=== PATIENT | female | born 1985 | race Caucasian/White ===

== ENCOUNTER 2016-04-26 06:38 | Day surgery (SDC) | payer OTHER ==
[2016-04-26] VITALS (13 sets, daily range): BP systolic 95–132; BP diastolic 55–82; PULSE 74–101; RESP 11–20; O2SAT 93–99
[~2016-04-26] VITALS: Ht 157.5 cm; Wt 97.5 kg
[~2016-04-26 06:38] MED LIST: ALBU8.5H2 INHALATION; Clindamycin 900 mg/50 mL D5W IV ONE; DEXTROSE 5% IV ONE; GENTAMICIN IV ONE; IBUP-1827 PO; LORA10CA PO; Phenazopyridine 97.5 mg Tablet PO ONE
[2016-04-26] MEDS ORDERED: fentaNYL-PF 50 mCg/mL 2 mL Inj ONE (06:39)
[2016-04-26] MEDS ORDERED: Morphine PF 1 mg/mL 10 mL Inj ONE (06:39)
[2016-04-26] MEDS ORDERED: Glycopyrrolate 0.2 mg/mL 5 mL Inj ONE (06:39)
[2016-04-26] MEDS ORDERED: Ondansetron 2 mg/mL 2 mL Inj ONE (06:39)
[2016-04-26] MEDS ORDERED: Rocuronium 10 mg/mL 5 mL Inj ONE (06:39)
[2016-04-26] MEDS ORDERED: Propofol 10,000 mCg/mL 20 mL Inj ONE (06:39)
[2016-04-26] MEDS ORDERED: Neostigmine 1 mg/mL 5 mL Inj ONE (06:39)
[2016-04-26] MEDS ORDERED: Dexamethasone 4 mg/mL Inj ONE (06:39)
[2016-04-26] MEDS: Lactated Ringer's 1,000 ML IV SCH ×5 (07:44→23:37)
--- NOTE | 2016-04-26 08:25 | PCM.HPANE ---
Patient Data Date of Service: Apr 26, 2016 Surgeon Admitting Provider: Attending Provider:Miguel Hu MD Primary Care Physician:Juan Daniel Other Provider:Corazon Erazo Anesthesia Reason for Visit Uterovaginal Prolapse, Cystocele, Rectocele, Stres UTEROVAGINAL PROLAPSE, CYSTOCELE, RECTOCELE, STRES Ht/WT & BMI Height (Feet): 5 Height (Inches): 2 Weight (Kilograms): 96.6 Body Mass Index 0.00 Allergies Coded Allergies: Penicillins (Verified Allergy, Unknown, throat swells, 04/26/16) Past Anesthesia History Anesthesia History: Denies:: Abnormal Airway, Anesthesia Reactions, Difficult Intubation, Fam Anesthesia Reaction Diabetes History Hx Diabetes?: No MRSA MRSA: No Medications Hypertension Medication: No Home Meds Incl Beta Elvi: No Reported Medications Ibuprofen 600 Mg [id number] Mg PO QID PRN For Pain Ref 0 04/24/16 Loratadine (Claritin)10 Mg [id number] Mg PO DAILY Ref 0 04/24/16 Albuterol HFA (Proair HFA)8.5 Gm Hfa.aer.ad2 Puffs INHALATION Q4H PRN For Shortness of Breath #1 INHALER 04/24/16 History History of ENT Problems?: Yes HEENT History: Positive for:: Sinus Problem (allergies) TMJ (grinds, no nightguard) Denies:: Abnormal Airway Cataracts Difficult Intubation Dysphagia Glaucoma Hearing Problem Teeth Condition: Broken Teeth Cardiovascular History: Positive for:: Irregular Heartbeat (slight arrythmia-) Denies:: AICD Abdominal Aortic Aneurism Atrial Fibrillation Heart Murmur Hypertension Pacemaker Peripheral Vascular Rheumatic Fever Hx of Respiratory Problem?: Yes Respiratory History: Positive for:: Asthma (situational, exercise induced) Use of Inhalers / NEBS Denies:: COPD Emphysema Oxygen Administration Pneumonia Tuberculosis Use of C-PAP Machine Hx Neurologic Problems?: Yes Neurological History: Positive for:: Headaches Denies:: Alzheimer's Disease CVA Dementia Multiple Sclerosis Parkinson's Disease Seizures TIA Hx of GI Problems?: Yes Gastrointestinal History: Positive for:: Gastroesphageal Reflux Heartburn (tums occasionally) Denies:: Cirrhosis Diverticulitis Gall Bladder Disease Hepatitis Hiatal Hernia Liver Disease Hx of Problems?: No Genitourinary History: Denies:: Kidney Stones Urinary Tract Infection (occasional not frequent) Female Hx: Denies:: Currently Problems with Breasts? Skin History: Denies:: History Skin Disorders? Pressure Ulcers Hx Musculoskeletal Problems?: No Musculoskeletal History: Denies:: Back Injury Joint Replacement Musculoskeletal Trauma Myasthenia Gravis Osteoarthritis Rheumatoid Arthritis Hx of Psycho/Social Problems?: Yes Psycho Social History: Positive for:: Anxiety Hx Depression Hx Surgeries?: Yes (D+C) Hx Any Other Health Problems?: Yes Other History: Denies:: Cancer Thyroid Disease History Blood Transfusions: Positive for:: Accept Blood Products? Denies:: Blood Transfusions Hx Diabetes: No Hx Alcohol Use: NoHx Substance Use: Yes (marijuana - daily)Have You Smoked inLast 12 mo: No (vapes currently) Stop/Bang S-Snoring: Do You Snore Loudly: No T-Tired: feel tired, fatigued: No O-Obsered: Observed not breath: No P-Blood Pressure: treated: No B- Body Mass Index > 35 kg/m2: No A- Age over 50: No N- Neck Large Circumference: No G- Gender Male: No SONIDO Total Score: 0 Risk Assessment Category Category 1A: Patient has history of documented sleep apnea, and HAS NOT received any narcotic, sedative or anesthesia administration during this stay. Category 1B: Patient has history of documented sleep apnea, and HAS received any narcotic , sedative or anesthesia administration during this stay Category 2: Patient has SUSPECTED Obstructive Sleep Apnea, and HAS received any narcotic , sedative or anesthesia administration during this stay. Category 3: Patient has SUSPECTED Obstructive Sleep Apnea and HAS NOT received narcotic, sedative or anesthesia administration during this stay. Category 4: Outpatient in Procedural Areas with known sleep apnea or who screen positive for High Risk via the STOP/BANG questionnaire. Exam Exam Vital Signs Vital Signs Date Time Temp Pulse Resp B/P Pulse Ox O2 Delivery O2 Flow Rate FiO2 04/26/16 07:03 36.5 95 20 132/82 97 Room Air General Appearance: Alert, Oriented X3 HEENT/AIRWAY: MP 3 Lungs: Clear to Auscultation, Normal Air Movement Heart: Regular Rate/Rhythm Meds/Labs/Diagnostics Admission Meds Current Medications Phenazopyridine HCl 2 tab 2 tab PREOP ONCE PO Last administered on 04/26/16t 07 :55; Start 04/26/16 at 06:00; Stop 04/26/16 at 06:01; Status DC Lactated Ringer's (Lr) 1,000 ml @ 120 mls/hr Q8H20M IV Last administered on t 07:44; Start 04/26/16 at 05:00; Stop 04/26/16 at 13:19 Plan Impression Patient chart reviewed, patient interviewed and anesthestic plan with risks, benefits, and alternatives discussed, and informed consent obtained. NPO Status: 04/25 3024 ASA Physical Status: ASA2 Mod Systemic Disease Anesthetic Plan: GA, SAB (for post op analgesia) Bene/Risks/Altern/Consents: Yes HP Complete Prior to Induction: Yes Manpreet Echols MD Apr 26, 2016 08:25
[2016-04-26] MEDS ORDERED: Lidocaine 1%-Epi 1:100,000 20 mL Inj NERVEBLOCK ONE (09:26)
[2016-04-26] MEDS ORDERED: Sodium Chloride Bacteriostatic 30 mL Inj INJ ONE ×2 (09:26→11:32)
[2016-04-26] MEDS ORDERED: Gentamicin 40 mg/mL 2 mL Inj IRRIGATION ONE ×2 (09:27→11:43)
[2016-04-26] MEDS ORDERED: Lactated Ringer's 1,000 ML IV SCH (10:11)
[2016-04-26] MEDS ORDERED: Lactated Ringer's 500 ML IV PRN (10:11)
[2016-04-26] MEDS ORDERED: MetoCLOpramide 5 mg/mL 2 mL Inj IVPUSH PRN ×2 (10:15→14:10)
[2016-04-26] MEDS ORDERED: EPHEDrine Sulfate 50 mg/mL Inj IM PRN (10:15)
[2016-04-26] MEDS ORDERED: Phenylephrine 10,000 mCg/mL Inj IVPUSH PRN (10:15)
[2016-04-26] MEDS ORDERED: hydrALAZINE 20 mg/mL Inj IVPUSH PRN (10:15)
[2016-04-26] MEDS ORDERED: Atropine 0.4 mg/mL Inj IVPUSH PRN (10:15)
[2016-04-26] MEDS ORDERED: EPHEDrine Sulfate 50 mg/mL Inj IVPUSH PRN (10:15)
[2016-04-26] MEDS ORDERED: Ondansetron 2 mg/mL 2 mL Inj IVPUSH PRN ×2 (10:15→14:10)
[2016-04-26] MEDS ORDERED: fentaNYL-PF 50 mCg/mL 2 mL Inj IVPUSH PRN (10:15)
[2016-04-26] MEDS ORDERED: HYDROmorphone 1 mg/mL Inj IVPUSH PRN (10:15)
[2016-04-26] MEDS ORDERED: Labetalol 5 mg/mL 4 mL Inj IV PRN (10:15)
[2016-04-26] MEDS ORDERED: Lidocaine 1%-Epi 1:100,000 20 mL Inj INJ ONE (11:31)
[2016-04-26] MEDS ORDERED: Nalbuphine 10 mg/mL Inj IV PRN (13:10)
[2016-04-26] MEDS ORDERED: Estrogens Conjugated 30 Gm Vaginal Cream VAGINAL ONE (13:19)
[2016-04-26] MEDS ORDERED: Alum-Mag Hydrox-Simeth 30 mL Suspension PO PRN (14:10)
[2016-04-26] MEDS ORDERED: diphenhydrAMINE 25 mg Capsule PO PRN (14:10)
[2016-04-26] MEDS ORDERED: Acetaminophen IV 1,000 MG in IV Premix 1 EACH IV ONE (14:10)
--- NOTE | 2016-04-26 15:30 | PCM.ANEP2 ---
Post Anesthesia Evaluation ASA/CMS Post Anesthesia Date of Service: Apr 26, 2016 VS in Patient's Normal Range?: Yes Resp Stable; Airway Patent?: Yes CV Function & Hydration Stable: Yes Mental Status Recovered?: Yes Pain control Satisfactory?: Yes N/V Control Satisfactory?: Yes Manpreet Echols MD Apr 26, 2016 15:30
--- NOTE | 2016-04-26 15:30 | PCM.ANEP1 ---
Post Anesthesia Phase 1 PACU Phase 1 Assessment Date of Service: Apr 26, 2016 Vital Signs Vital Signs Date Time Temp Pulse Resp B/P Pulse Ox O2 Delivery O2 Flow Rate FiO2 04/26/16 15:15 74 14 107/73 98 Nasal Cannula 2 04/26/16 15:00 77 11 118/72 99 Nasal Cannula 2 04/26/16 14:45 80 16 121/56 95 Nasal Cannula 2 04/26/16 14:44 16 94 04/26/16 14:30 36.5 77 13 121/59 98 Simple Mask 8 04/26/16 14:25 75 14 116/59 97 Simple Mask 8 04/26/16 14:20 80 15 114/62 98 Simple Mask 8 04/26/16 14:15 80 14 108/56 99 Simple Mask 8 04/26/16 14:10 85 16 114/58 98 Simple Mask 8 04/26/16 14:07 36.8 85 13 123/63 98 Simple Mask 8 Anesthetic Administered: GA, SAB Level of Alertness: Sleeping, hard to arouse COATES's with Equal Strength: Yes Pain: Yes Nausea or Vomiting: No Airway Device: Oralpharangeal Airway Oxygen Delivery: Simple Mask Lungs: Clear to Auscultation, Normal Air Movement Dermatome Level: Full Sensation Manpreet Echols MD Apr 26, 2016 15:30
--- NOTE | 2016-04-26 15:56 | NUR ---
Post Op Transfer Pt transferred to [facility] room 1025 at 1535 via stretcher. A&Ox3. COATES. Pt able to transfer bed. Tolerated activity well. Denies pain. Denies nausea. Doyle cath patent and draining to gravity. Vaginal packing in place with peripad C/D/I. Bilateral band aids on lower groin with steri strips C/D/I. 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 Care continues.
[2016-04-26] MEDS ORDERED: Albuterol 2.5 mg/3 mL Inhalation Solution NEB PRN (16:00)
[2016-04-26] MEDS ORDERED: Influenza (Adult) Vaccine 0.5 mL Syringe IM ONE (16:15)
[2016-04-26] MEDS: oxyCODONE-Acetamin 5-325 mg Tablet PO PRN ×3 (17:22→23:36)
--- NOTE | 2016-04-26 18:35 | NUR ---
Diet Pt tolerated full liquid dinner tray with no nausea. Advanced pt to general diet and ordered a sandwich per pt request.
--- NOTE | 2016-04-27 00:11 | PCM.SURGOP ---
Surgical Operative Report Date of Service: Apr 26, 2016 Pre Operative Diagnosis 1. POPQ Stage 1-2 Apical Uterine prolapse, 2. POPQ Stage 2 Anterior and Posterior vaginal prolapse 3. urodynamic stress incontinence Post Operative Diagnosis 1. POPQ Stage Uterine prolapse/Cystocele/Rectocele 2. Deficient Pubocervical/pubovesical fascia 3. Enlarged, cystic ovaries 4. urodynamic stress incontinence Procedure: 1. vaginal hysterectomy with bilateral salpingectomy, 2. anterior repair with Xenform graft augmentation 3. posterior repair 4. high uterosacral ligament vaginal vault suspension and enterocele repair 5. TVT-obturator sling and cystoscopy Surgeon and Supervisor [employer] Education: Surgeon: Miguel Hu MD Assistants: Andrey Morales MD Indication for Procedure Her assessment includes: 1. Uterovaginal prolapse, incomplete N81.2 (618.2): 2. Cystocele, midline N81.11 (618.01): 3. Rectocele N81.6 (618.04): 4. Mixed incontinence N39.46 (788.33): urodynamic stress incontinence The patient is a candidate for surgical prolapse management in the form of:. vaginal hysterectomy. with bilateral salpingectomy, anterior repair. and posterior repair with possible biologic graft augmentation. high uterosacral ligament vaginal vault suspension. enterocele repair and TVT-obturator sling. The patient signed the consent form. She agreed with the risks, benefits, and alternatives to surgery. The risks included but not limited to recurrence or persistence of prolapse, recurrence of persistence of incontinence, development of voiding dysfunction, development of urinary urgency, urgency incontinence, frequency, and need for intermittent self-catheterization or prolonged indwelling catheterization, injury to other organs including bladder, bowel, nerves or blood vessels. Need for blood transfusion, need for temporary colostomy or urinary stenting. Development of vaginal scarring, dyspareunia, defecatory dysfunction, recurring pain, hematoma formation, urinary tract infection, cellulitis, necrotizing fascitis, and medical risks including myocardial infarction, stroke or VTE. She also understood the FDA warnings associated with the use of vaginal mesh (dysparunia, vaginal erosion, erosion into bowel/bladder/urethra, requiring further surgery to correct these complications). The patient understood the risks and benefits and consented to surgery.. Findings: see dictation Procedure Details SURGICAL TECHNIQUE: The patient was brought to the operating room. She was given a spinal block. She was placed under general anesthesia. She was positioned with legs in [place] stirrups. She was prepped and draped in the normal fashion for vaginal surgery. She was given a dose of IV clindamycin and gentamicin intraoperatively. She received 200 mg pyridium orally 30 min prior to surgery. 1. Vaginal Hysterectomy and bilateral salpingectomy: Lidocaine 0.5% with 1:50,000 of epinephrine was infiltrated pericervically. The cervix descended 1cm proximal to the hymen (POPQ stage 2). A pericervical incision was made with cautery. Anteriorly, the bladder was sharply dissected off the cervix. Posteriorly, the cul de sac was entered with Sharp dissection. The bowels were packed with a mini-laparotomy sponge. The uterosacral ligaments were bilaterally clamped, divided and then tied in a transfixion fashion with 0- vicryl suture. Anteriorly, the Uterovesical peritoneum was entered with sharp dissection and the bladder was retracted upward with a right-angle retractor. The uterine vessels were then coagulated, and ligated using the Ligasure Impact System. The uterine body was delivered posteriorly. The utero-ovarian ligaments were clamped bilaterally, coagulated, ligatated and then tied using 0-Vicryl suture. The tubes appeared normal. Both ovaries were enlarged and noted to have simple cysts. The right ovary measured 4.5 cm and the left 3.5 cm. Manual manipulation of the right ovary resulted in rupture of one of the cysts. Cautery was used to achieve hemostasis along the ovary. She agreed to have a bilateral salpingectomy. The tubes were clamped at their base, coagulated with Ligasure and excised. The base was tied with 0-vicryl suture. The uterus/cervix, and tubes were sent to pathology. It was noted that the pedicles were hemostatic. 2-0 vicryl suture was used to achieve hemostasis along the cuff. 2. High uterosacral ligament vaginal vault suspension, cystoscopy and enterocele repair: Mini laparotomy sponges were packed to retract the bowel upwards. A pair of Allis clamps were placed along the intraperitoneal portions of the vagina at the 5 and 7 o'clock positions. Tension along these Allis clamps allowed for identification of the uterosacral ligaments bilaterally. A pair of 0 Vicryl sutures were passed around the uterosacral ligaments of the level of the ischial spine bilaterally, totalling 4. Cystoscopy was performed. As the pyridium was not concentrating well in the urine, 200 ml of D50 was instilled into the bladder. Tension was applied along the vault sutures and brisk spillage of urine was noted briskly effluxing from both ureteric orifices. The D50 was emptied from the bladder and the bladder was rinsed with normal saline. Next two 3-0 Prolene sutures were placed transversely through the cul-de-sac peritoneum. This was Performed while using a gloved finger in the rectum as to avoid penetrating the underlying rectal mucosa. Tying these sutures obliterated the enterocele. 3. Anterior colporrhaphy with Xenform graft augmentation: Lidocaine 0.5% with 1 /57972 epinephrine was infiltrated along the anterior vaginal wall mucosa. A midline vertical incision was made through the anterior vaginal wall. The vaginal wall was dissected off the underlying pubocervical and pubovesical fascia. The dissection was extended laterally beyond the ischial pubic rami. It was noted that the pubocervical and pubovesical fascial tissues were deficient and thin. The cystocele was plicated in 2 layers, the first layer with 2-0 Vicryl suture in interrupted fashion, the second layer with 2-0 Tycron suture in an interrupted fashion. A trapezoidal piece of Xenform graft was then incorporated atop the plicated area far laterally. The graft was secured to the obturator internus membrane. At the level of the bladder neck, an upside down triangular piece of graft was excised so that there was no over-support created along the level of the bladder neck. Apically , the graft was passed through the proximal uterosacral ligament sutures. A mild amount of excess anterior vaginal mucosa was excised. The vault suspension sutures were then passed through the planned apex of the vagina. Two were placed through the anterior apex and the other two, through the posterior apex. The vagina was then reapproximated using 3-0 Vicryl suture in a running-locked fashion. The high uterosacral ligament vaginal vault suspension sutures were tied and this elevated the apex of the vagina high up into the hollow of the sacrum. 4. Posterior colpoperineorrhaphy: Lidocaine 0.5% with 1:50,000 of epinephrine was infiltrated along the perineum and posterior vaginal wall mucosa. A wedge of perineum was excised with a scalpel and a midline vertical incision was made through the posterior vaginal wall. The vaginal mucosa was dissected off the underlying rectovaginal tissues. It was noted the fascial tissues were sufficient. The rectocele was plicated in two layers using 2- 0 Vicryl suture in an interrupted fashion. A mild amount of excess posterior vaginal mucosa was excised. The perineum was reapproximated using 2-0 Vicryl suture in an interrupted fashion. The skin was reapproximated using 3-0 Vicryl suture in a subcuticular fashion. 5. TVT-Obturator sling and cystoscopy. Lidocaine 0.5% with 1/68744 epinephrine was infiltrated along the anterior vaginal wall mucosa at the level of the mid urethra. Midline vertical incision was made at that level, 2 periurethral tunnels were created with Metzenbaum scissors. Two stab incisions were created at the skin at the groin at a level 2 cm superior to the external urethral meatus and 2 cm lateral to the fold created between the vulva and thigh. Faust catheter had already been inserted. A butterfly guide was inserted into the right periurethral tunnel, a curved helical needle was inserted on top of the guide and rotated out to the ipsilateral skin incision. The same procedure was performed on the contralateral side. Next the Faust catheter was removed. Cystoscopy was performed with D50. There was no inadvertent penetration of the sling through the vagina, urethra or bladder. In addition, the ureteric orifices were noted bilaterally to be functional by the brisk spillage of urine. The bladder appeared normal. The plastic sheaths of the sling were removed. The bladder was filled with additional sterile water (to a total bladder volume of 300 ml). Using the Crede maneuver, sling tension was appropriately adjusted. Also a large right angle clamp was allowed to easily pass behind the sling so that the sling was placed in a tension-free manner. The sling ends were cut at the level of the skin. The skin was reapproximated using Mastisol, Steri-Strips and band-aids. The vagina was reapproximated using 3-0 Vicryl suture in a running fashion The vagina was packed with Premarin-lubricated packing. An indwelling 16 F faust catheter was connected to straight drainage. The patient's hips were periodically deflexed during the case. There were no complications. The EBL was 250 ml. She received 1800 ml of IV fluid during the case. All sponges and instruments were accounted for. She was taken to the recovery room in stable condition. Complications There were no periprocedural complications identified. Surgical Specimen Removed: Yes Specimen sent to Pathology: Yes Surgical Specimen description: uterus/cervix, tubes Anesthetic Plan: GA, SAB (for post op analgesia) Grafts, Implants: Grafts-See Implant Record, Implants-See Implant Record Output, Estimated Blood Loss: 250 (ml) Blood Administration during johnston: No Drains: None Catheters: Urethral 2 Way Faust Post Operative Plan overnight stay in bed as she requires a voiding trial in the am copies to: Andrey Morales MD; Miguel Hu MD, William Andre Z MD Apr 27, 2016 00:11
[2016-04-27 00:44] VITALS: BP 95/59; PULSE 84; RESP 18; O2SAT 98
--- NOTE | 2016-04-27 03:57 | NUR ---
Pain Pt. started shift with pain 09/25. Pt. woke up in middle of night stating pain was worse with a /. [place] PO ineffective at that time. IVP morphine admin. Pt. has been sleeping since. Will continue to monitor.
[2016-04-27 05:17] VITALS: BP 98/61; PULSE 100; RESP 20; O2SAT 98
[2016-04-27] MEDS: oxyCODONE-Acetamin 5-325 mg Tablet PO PRN ×3 (05:31→13:19)
[2016-04-27 05:47] LABS: BASOPHILS % (AUTO) 0 % (0-3); EOSINOPHILS % (AUTO) 0.2 % (0-5); Mean Corpuscular Hemoglobin 28.8 pg (27.0-35.0); Mean Corpuscular Volume 89.5 fL (81-100); NEUTROPHILS % (AUTO) 72.8 % (40-74); Platelet Count 239 bil/L (150-400)
[2016-04-27] MEDS: Lactated Ringer's 1,000 ML IV SCH (08:01)
[2016-04-27 08:13] VITALS: BP 93/53; PULSE 72; RESP 18; O2SAT 95
[2016-04-27] MEDS ORDERED: Senna-Docusate 8.6-50 mg Tablet PO SCH (08:30)
[2016-04-27] MEDS ORDERED: Heparin 5,000 Unit/mL Inj SUBQ SCH (08:30)
--- NOTE | 2016-04-27 11:14 | PCM.PNSURG ---
Subjective Date of Service: Apr 27, 2016 Date of Service: Apr 27, 2016 Visit Information: Reason for Visit Uterovaginal Prolapse, Cystocele, Rectocele, Stres Surgery/Surgery Date TVH W/Bilat Salpingectomy 04/25/16 Post-Op Day # 1 Subjective: AVSS Pt informed of surgery Pt has previous hx of ovarian cysts and was told of the finding of ovarian cysts starting to ambulate pain controlled with IV and po analgesia (morphine, Percocet, Toradol, Ibuprofen ) JORDY hct stable Postop General: No Complaints Gastrointestinal: Good Appetite Postop Activity: Ambulating Independently Objective Vital Sign- Last 8 Hours Date Time Temp Pulse Resp B/P Pulse Ox O2 Delivery O2 Flow Rate FiO2 04/27/16 08:13 36.5 72 18 93/53 95 Room Air 04/27/16 05:17 36.7 100 20 98/61 98 Nasal Cannula 1.00 Intake and Output- Last 8 Hour 04/27/16 Cumulative From/Thru 07:00 04/24/16 14:15 - 04/27/16 06:03 Intake Total 2645 ml 5581 ml Output Total 2500 ml 3540 ml Balance 145 ml 2041 ml Intake Oral 900 ml 1500 ml IV Total 1745 ml 4081 ml Output Urine Total 2250 ml 3040 ml Estimated Blood Loss 250 ml 500 ml # Bowel Movements 0 0 General: Alert, Oriented X3, Cooperative Lungs: Clear to Auscultation Abdomen: Soft Catheters: Urethral 2 Way Faust Result Diagram: 04/27/16 0512 Assessment & Plan Impression stable POD#1 Problems: Plan voiding trial now wean off IV pain medication d/c home later today If home with faust, f/u in 1 wk also f/u in [address] Hu May need repeat pelvic ultrasound in 3 mo re: ovarian cysts VTE Prophylaxis: Sub-Q Heparin (Unfractionated) Resuscitation Status: CPR: Attempt Resuscitation copies to: Miguel Hu MD, William Andre Z MD Apr 27, 2016 11:14
--- NOTE | 2016-04-27 11:17 | PCM.DIGYN ---
Surgical Discharge Instruction Dates of Hospitalization Date of Hospital Admission 04/26/16 outpatient stay in bed Providers Admitting Physician: Primary Care Physician: Nopcp Attending Physician: Miguel Hu MD Diagnosis at Time of Discharge Diagnosis at time of discharge surgery for pelvic prolapse and stress incontinence Ovarian cysts Post-operative diagnosis 1. POPQ Stage Uterine prolapse/Cystocele/Rectocele 2. Deficient Pubocervical/pubovesical fascia 3. Enlarged, cystic ovaries 4. urodynamic stress incontinence Problems: Diet Discharge Diet: No restrictions Activity Discharge Activity-General: Restrict lifting to no greater than (10 lbs for 6 wk) Dressing and Incisional Care Hygiene: May shower Additional Instructions Discharge Instructions pls give patient the paper prescription sheet found in the chart Perform faust teaching as per instructions if she failed voiding trial Follow Up Plan Follow-up appointment: Weeks (2; also f/u in [address] Hu's MA if home with faust catheter) Call your provider for: Fever, Chills, Shortness of breath, Vomitting, Drainage at incision, Heavy vaginal bleeding, Increasing pain Miguel Hu MD Apr 27, 2016 11:17
--- NOTE | 2016-04-27 11:41 | NUR ---
Social Work Initial Assessment: SW met with patient at bedside to discuss discharge plan. Patient is a 30 year old female admitted under [facility] for uterovaginal prolapse, cystocele. Patient payer as [employer]. 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 Patient states residing in [facility] on second floor with significant other [place]. Patient states significant other to provide support and care. Patient has no previous HHC, SNF, or DME history. Patient states having no AD. Form presented to patient for completion. Patient states being independent with needs and states having no identified discharge needs at this time. SW to follow as needs arise. PLAN: Home with significant other support and care. Transport via POV. No anticipated discharge needs pending clinical course Joe KANG Addendum: 04/27/16 at 1155 by AMERICA RAGLAND SS Amended: Links added.
--- NOTE | 2016-04-27 12:09 | NUR ---
Voiding Trial Removed patients vaginal packing. Started the bladder/voiding trial at 10:30am today. Irrigated the catheter with 300cc normal saline then removed patients faust catheter. There were some blood clots present in the vaginal area after removal. 2 dressings on groin are C/D/I. Patient attempted to void by sitting on the commode for 30 minutes but was in 9/10 pain and crying because she felt her bladder was so full, yet was unable to void as needed. She was only able to void approx 50ml of bloody urine. Patient got back in bed and was given 2mg of morphine to help with her pain and it went down to a 5/10. Bladder scan showed 394ml retained so per protocol, I reinserted a catheter. Instructed patient and her about home care for the catheter and will have him demonstrate care before discharge this afternoon to ensure understanding. Bed in low position and patient has call light. Addendum: 04/27/16 at 1458 by ERIK EDWARDS RN VOIDING TRIAL I CONCUR WITH THE ABOVE CHARTING. Vaginal packing was d/cd and voiding trial was initiated per orders.
[2016-04-27 13:21] VITALS: BP 116/73; PULSE 103; RESP 16; O2SAT 99
--- NOTE | 2016-04-27 13:53 | NUR ---
Discharge Patient stated no nausea, chest pain or SOB. Pain at 5/10 upon discharge. Patient given 2 tabs Percocet before leaving for pain control. IV DC'd intact. Patient and her were given discharge instructions and prescriptions to fill. Patients and were shown catheter care and returned demonstration and stated understanding of proper care. Patient left floor at 1350 in wheelchair with to go home with all her belongings. Addendum: 04/27/16 at 1611 by ERIK EDWARDS RN DISCHARGE Patient rated her pain as 5/10 over her abdomen, which is an acceptable pain level for her. Tolerating liquids PO and her diet well. Denies nausea. No emesis noted. Denies SOB. Patient has been able to ambulate with SBA in her room. Tolerated activity well. Bandaid dressing in her groin is CDI. Steri strips under the bandaid dressing. Vaginal packing was d/cd at 1030. Patient did not pass the voiding trial. IFC reinserted. Instructed the patient and her RE: IFC care and they both verbalized understanding. He was able to do a return demonstration RE: Emptying and caring for her IFC. Dr. Hu was notified RE: Patient post-op progress. Discharge orders received. IV d/cd. Discharge instructions, care notes and prescription was given to the patient and she verbalized understanding. Discharged to home with her and all her personal belongings. (Copy of D/C is in the chart).
--- NOTE | 2016-05-01 14:14 | PATH ---
SURGICAL PATHOLOGY Attending Physician:Miguel Hu, CASE STATUS: Signed Out PATIENT NAME: ADRIA CALLE PID: [id number] : 1985 DATE COLLECTED:04/26/2016 00:00 SPECIMEN: 1: Uterus +/- tubes/ovaries, except neoplastic, prolapse 2: Fallopian Tube, Biopsy CLINICAL HISTORY: UTERINE PROLAPSE 1). UTERUS & LEFT TUBE 2). RIGHT FALLOPIAN TUBE FINAL DIAGNOSIS: 1.UTERUS WITH LEFT FALLOPIAN TUBE (CLINICAL UTERINE PROLAPSE): PROLIFERATIVE ENDOMETRIUM, NEGATIVE FOR ATYPIA. FALLOPIAN TUBE UNREMARKABLE. 2.RIGHT FALLOPIAN TUBE: NO SIGNIFICANT PATHOLOGIC CHANGE. ICD10 CODE N81.4 GROSS DESCRIPTION: The specimens are received in formalin, labeled with the patient's name, and sublabeled as the following: (1) uterus + left tube; (2) right fallopian tube. (1) The specimen consists of a uterus (122 g, 4.7 cm AP, 9.1 cm SI, 5.2 cm ML) and a detached fimbriated fallopian tube (length-4.2 cm, diameter-0.5 cm). The ovaries and second fallopian tube are absent. The cervix (2.5 cm AP, 3.5 cm ML) has a vaginal cuff (up to 2.6 cm in depth), transverse os and patent endocervical canal. The endometrium (average thickness-0.2 cm) is pink smooth and flat. The myometrium (thickness-2.2 cm) is celestin-white and unremarkable. The serosa is celestin smooth and shiny. The fallopian tube has solorzano-celestin smooth shiny serosa and a celestin and unremarkable lumen. Section code: (A) anterior cervix; (B) posterior cervix; (C, D) anterior endomyometrium; (E, F) posterior endomyometrium; (G) fallopian tube, serially sectioned, access services representative; (H) fimbria, bivalved, entirely submitted. (2) The specimen consists of a fimbriated fallopian tube (length-5.5 cm, diameter-0.5 cm). The serosa is balderrama-celestin smooth and shiny with multiple paratubal cysts (0.1 cm-0.9 cm) containing clear colorless fluid. The lumen is celestin and unremarkable. Section: (2A) fallopian tube, serially sectioned, access services representative; (2B) fimbria, bivalved, entirely submitted. 04/28/16 JM MICRO DESCRIPTION: See diagnosis. ICD-9 CODES: CPT CODES: 1: 14761 2: 07783 Electronically Signed Out Yandel Manzo MD [facility] [address], [place] [address] Technical component performed at [facility], [address], [place], [address]
== END 2016-04-27 13:50 | disposition home or self-care (01) ==
LOC: SAS 06:38 → OSC 15:35 → SAS 04-27 13:50
PROVIDERS: ATTEND Obstetrics & Gynecology
DX: N81.2 Incomplete uterovaginal prolapse (principal); N81.11 Cystocele, midline; N81.6 Rectocele; N83.8 Other noninflammatory disorders of ovary, fallopian tube and broad ligament; N83.202 Unspecified ovarian cyst, left side; N83.201 Unspecified ovarian cyst, right side; N39.3 Stress incontinence (female) (male); Z23 Encounter for immunization
CPT/HCPCS: 36415; 57260; 57267; 57283; 57288; 58262; 85025; 86850; C1763; C1771; J0131; J1100; J1200; J1580; J1644; J2250; J2270; J2274; J2405; J2710; J3010; J7120; Q2039